=== PATIENT | male | born 1970 | race African-American/Black ===

== ENCOUNTER 2018-06-23 09:22 | Day surgery (SDC) | payer OTHER ==
[~2018-06-23] VITALS: Ht 162.6 cm; Wt 66.7 kg
[~2018-06-23 09:22] MED LIST: ATIVAN1 MG PO; DARVOCET-N 1001 TAB PO; FAMOTIDINE20 MG PO; FLEXERIL 1010 MG/TAB PO; FLEXERIL PO; FLUOXETINE; LORTAB 5/500 501 TAB PO; NAPROSYN500 MG PO; NO HOME MEDICATIONS; NORCO 325 MG-51 TAB PO; PHENERGAN 25 TA25 MG PO; PHENERGAN W/CO120 ML PO; PRILOSEC 20MG20 MG PO; PROZAC 10MG10 MG PO; QUETIAPINE; SEROQUEL 2525 MG/TAB PO; SUCRALFATE1 GM PO; TAMIFLU 75MG75 MG PO; ULTRAM50 MG PO; UNABLE; ZOFRAN4 MG PO; [UNRECOGNIZED DRUG - REMARK]
[2018-06-23] MEDS ORDERED: PRINIVIL10 MG PO (10:15)
[2018-06-23] MEDS ORDERED: PRILOSEC 20MG20 MG PO (10:16)
[2018-06-23] MEDS ORDERED: SEROQUEL50 MG PO (10:16)
[2018-06-23] MEDS ORDERED: ZYPREXA10 MG PO (10:17)
[2018-06-23] MEDS ORDERED: DESYREL 100MG100 MG PO (10:17)
[2018-06-23] MEDS ORDERED: INDERAL 20MG20 MG PO (10:19)
[2018-06-23] MEDS ORDERED: LIPITOR 10MG10 MG PO (10:19)
[2018-06-23] MEDS ORDERED: EFFEXOR 75M75 MG/TAB PO (10:20)
[2018-06-23] MEDS ORDERED: TYLENOL 500MG500 MG PO (10:21)
[2018-06-23] MEDS ORDERED: ANUSOL-HC2.5% RC (10:21)
[2018-06-23 10:34] VITALS: BP 119/90; PULSE 72; TEMP 97.8
[2018-06-23 11:35] VITALS: BP 102/69; PULSE 73; TEMP 97.8
[2018-06-23 11:50] VITALS: BP 113/81; PULSE 74
[2018-06-23 12:00] VITALS: BP 120/96; PULSE 69
[2018-06-23 12:15] VITALS: BP 130/84; PULSE 64
[2018-06-23 13:25] VITALS: BP 94/63; PULSE 77
== END 2018-06-23 12:25 ==
LOC: SDCO 09:22
DX: R19.5 Other fecal abnormalities (principal); K64.0 First degree hemorrhoids; K62.89 Other specified diseases of anus and rectum; K21.9 Gastro-esophageal reflux disease without esophagitis; K29.30 Chronic superficial gastritis without bleeding; F32.9 Major depressive disorder, single episode, unspecified; F41.9 Anxiety disorder, unspecified
CPT/HCPCS: J7030

== ENCOUNTER 2021-06-19 22:16 | Emergency (ER) | payer SELFPAY ==
[~2021-06-19] VITALS: Ht 162.6 cm; Wt 63.6 kg
[~2021-06-19 22:16] MED LIST changes: +ANUSOL-HC2.5% RC; +DESYREL 100MG100 MG PO; +EFFEXOR 75M75 MG/TAB PO; +INDERAL 20MG20 MG PO; +LIPITOR 10MG10 MG PO; +PRINIVIL10 MG PO; +SEROQUEL50 MG PO; +TYLENOL 500MG500 MG PO; +ZYPREXA10 MG PO
[2021-06-19 22:20] VITALS: TEMP 98.2
[2021-06-19 23:02] LABS: COLLECTION METHOD CLEAN CATCH
[2021-06-19 23:05] LABS: BASO % 0.5 % (0.0-2.0); EOS # 0.1 (0.0-0.7); GRAN # 3.2 (1.4-6.5); GRAN % 53.3 % (42.2-75.2); HEMATOCRIT 44.1 % (42.0-52.0); HEMOGLOBIN 14.8 g/dl (13.5-18.0); LYMPH # 2.2 (1.2-3.4); LYMPH % 36.9 % (20.0-51.0); MEAN CELL VOLUME 96 fl (80.0-100.0); MEAN CORPUSCULAR HEMOGLOBIN 32 pg (27.0-31.0); MEAN CORPUSCULAR HGB CONC 34 g/dl (33.0-37.0); MEAN PLATELET VOLUME 10.1 fl (7.4-10.4); MONO # 0.4 (0.1-0.6); MONO % 7.1 % (1.7-9.3); PLATELET COUNT 309 K/mm3 (130-400); RED BLOOD COUNT 4.61 M/mm3 (4.20-5.60); REDCELL DISTRIBUTION WIDTH-CV 12.4 % (11.5-14.5)
[2021-06-19 23:10] LABS: MUCOUS Present /lpf; PH 5 (5-8); SQUAMOUS EPITHELIAL None Seen /hpf; URINE APPEARANCE Clear; URINE BACTERIA None Seen /hpf; URINE BILIRUBIN Negative (NEGATIVE); URINE BLOOD Negative (NEGATIVE); URINE COLOR Yellow; URINE GLUCOSE Negative (NEGATIVE); URINE KETONE Negative (NEGATIVE); URINE LEUKOCYTE ESTERASE Negative (NEGATIVE); URINE NITRATE Negative (NEGATIVE); URINE PROTEIN(semi-quant) Negative (NEGATIVE); URINE RBC 0-2 /hpf; URINE UROBILINOGEN Negative (NEGATIVE)
[2021-06-19 23:16] LABS: ALANINE AMINOTRANSFERASE 44 U/L (4-49); ALBUMIN 4.6 gm/dL (3.5-5.0); ALCOHOL(ethanol),MEDICAL 210 mg/dL; ALKALINE PHOSPHATASE 65 U/L (50-136); ANION GAP 14 mmol/L (7-16); AST,SGOT 36 U/L (15-37); BILIRUBIN,TOTAL < 0.1 mg/dL (0.0-1.0); BLOOD UREA NITROGEN 10 mg/dL (9-20); CALCIUM 9.1 mg/dL (8.4-10.2); CARBON DIOXIDE 19 mmol/L (22-30); CHLORIDE 114 mmol/L (98-107); GLUCOSE 113 mg/dL (74-106); SODIUM 146 mmol/L (137-145); TOTAL PROTEIN 8.7 gm/dL (6.4-8.2)
[2021-06-19 23:18] LABS: TRICYCLIC ANTIDEPRESS URINE NEGATIVE
[2021-06-19 23:20] LABS: ACETAMINOPHEN < 10 ug/mL (10-30); SALICYLATE < 1.0 mg/dL
[2021-06-20 08:13] VITALS: BP 127/83; PULSE 96
== END 2021-06-20 08:13 | disposition home or self-care (01) ==
LOC: COL.ER 22:16
PROVIDERS: Emergency Medicine
DX: F10.129 Alcohol abuse with intoxication, unspecified (principal); R45.851 Suicidal ideations; F17.200 Nicotine dependence, unspecified, uncomplicated

== ENCOUNTER 2021-12-27 10:18 | Emergency (ER) | payer OTHER ==
[~2021-12-27] VITALS: Ht 162.6 cm; Wt 63.6 kg
[2021-12-27 10:19] VITALS: TEMP 98.9
[2021-12-27 11:17] LABS: BASO % 0.2 % (0.0-2.0); EOS % 0.3 % (0.0-4.0); GRAN # 4.2 K/mm3 (1.4-6.5); GRAN % 64.2 % (42.2-75.2); HEMOGLOBIN 12.6 g/dl (13.5-18.0); LYMPH # 1.8 K/mm3 (1.2-3.4); LYMPH % 27.4 % (20.0-51.0); MEAN CELL VOLUME 90 fl (80.0-100.0); MEAN CORPUSCULAR HEMOGLOBIN 29 pg (27-31); MEAN CORPUSCULAR HGB CONC 32 g/dl (33.0-37.0); MEAN PLATELET VOLUME 9.3 fl (7.4-10.4); MONO # 0.5 K/mm3 (0.1-0.6); MONO % 7.7 % (1.7-9.3); PLATELET COUNT 335 K/mm3 (130-400); RED BLOOD COUNT 4.32 M/mm3 (4.20-5.60); REDCELL DISTRIBUTION WIDTH-CV 14.4 % (11.5-14.5)
[2021-12-27 11:41] LABS: BILIRUBIN,TOTAL 0.4 mg/dL (0.2-1.2); CREATININE, serum 0.78 mg/dL (0.72-1.25); TOTAL PROTEIN 7.9 gm/dL (6.2-8.1)
[2021-12-27 11:46] LABS: TROPONIN-I 0.016 ng/mL (0.00-0.033)
[2021-12-27 12:58] VITALS: BP 122/78; PULSE 82
== END 2021-12-27 12:58 | disposition home or self-care (01) ==
LOC: COL.ER → EDBD 10:18 → COL.ER 10:18
PROVIDERS: Nurse Practitioner Primary Care
DX: S22.41XA Multiple fractures of ribs, right side, initial encounter for closed fracture (principal); F17.210 Nicotine dependence, cigarettes, uncomplicated; V03.10XA Pedestrian on foot injured in collision with car, pick-up truck or van in traffic accident, initial encounter